=== PATIENT | male | born 1995 | race Caucasian/White ===

== ENCOUNTER 2021-02-14 16:04 | Emergency (ER) | payer BC ==
[2021-02-14] MEDS ORDERED: AMOX TR/POT CLAV 875MG/125MG TABLETS (FP) PO ONE (16:34)
[2021-02-14 16:39] VITALS: BP 123/76; PULSE 75; TEMP 98.8; BMI 19.9
[2021-02-14] MEDS ORDERED: AMOX TR/POT CLAV 875MG/125MG TABLETS (FP) ONE (16:41)
== END 2021-02-14 16:45 | disposition home or self-care (01) ==
LOC: FER 16:04
DX: L03.031 Cellulitis of right toe (principal)
CPT/HCPCS: 99283-25

== ENCOUNTER 2021-02-16 11:20 | Emergency (ER) | payer BC ==
[2021-02-16 11:36] VITALS: BP 126/66; PULSE 94; TEMP 99.2; BMI 19.9
== END 2021-02-16 12:15 | disposition home or self-care (01) ==
LOC: FER 11:20
DX: L03.031 Cellulitis of right toe (principal)
CPT/HCPCS: 73660-TC-FY; 99283-25